=== PATIENT | male | born 1995 | race Caucasian/White ===

== ENCOUNTER 2017-11-29 10:04 | Emergency (ER) | payer OTHER ==
[~2017-11-29] VITALS: Ht 190.5 cm; Wt 86.2 kg
--- OUTSIDE RECORDS SUMMARY | ~2017-11-29 | XMS | Clinical Summary ---
Demographics + + + | Address | [address] | | | [place] [address] | + + + | Home Phone | | + + + | Preferred Language | Unknown | + + + | Marital Status | Single | + + + | Methodist Affiliation | NON | + + + | Race | White | + + + | Ethnic Group | Not or | + + + Author + + + | Organization | Unknown | + + + | Address | Unknown | + + + | Phone | Unavailable | + + + Support +------+ +---------+ + | Name | Relationship | Address | Phone | +------+ +---------+ + ECON | Unknown | | +------+ +---------+ + Care Team Providers + +------+ + | Care Air Export Coordinator Name | Role | Phone | + +------+ + PP | Unavailable | + +------+ + Source Comments [facility] is fully live on both [facility] and [facility] & [facility] Allergies No Known Allergies Current Medications Not on file Active Problems Not on file Social History + +-------+ +--------+------+ | Tobacco Use | Types | Packs/Day | Years | Date | | | | | Used | | + +-------+ +--------+------+ | Never Assessed | | | | | + +-------+ +--------+------+ + + + | Sex Assigned at | Date Recorded | | | | + + + | Not on file | | + + + Plan of Treatment + + + + + | Health Maintenance | Due Date | Last Done | Comments | + + + + + | INFLUENZA VACCINE | | | | | (FLU SHOT) | 7 | | | + + + + + Results Not on filefrom Last 3 Months"
--- OUTSIDE RECORDS SUMMARY | ~2017-11-29 | XMS | Clinical Summary ---
Demographics + + + | Address | [address] | | | [place] [address] | + + + | Home Phone | | + + + | Preferred Language | Unknown | + + + | Marital Status | Single | + + + | Congregational Affiliation | NON | + + + [...] Team Providers + +------+ + | Care Urban Design Consultant Name | Role | Phone | + +------+ + PP | Unavailable | + +------+ + Source Comments OHRHETT is fully live on both [facility]ulatory and [facility] InPatient.[facility] Allergies No Known Allergies Current Medications Not [...]
[2017-11-29] MEDS ORDERED: ALLEGRA-D 12 H1 EACH PO (10:41)
[2017-11-29] MEDS ORDERED: AUGMENTIN 875-1 EACH PO (10:41)
== END 2017-11-29 10:53 | disposition home or self-care (01) ==
LOC: ED 10:04
DX: R04.0 Epistaxis (principal); J32.9 Chronic sinusitis, unspecified
CPT/HCPCS: 99283